=== PATIENT | female | born 1975 | race Two or more races ===

== ENCOUNTER → 2022-12-30 | Emergency (ER) | payer BC ==
[~2022-12-30] VITALS: Ht 175.3 cm; Wt 63.5 kg
[~2022-12-30] MED LIST: ALPRAZOLAM ODT0.5 MG PO; INDERAL XL80 MG PO; PEPCID40 MG PO; ZOFRAN8 MG PO
== END | disposition home or self-care (01) ==
LOC: ER 00:53
DX: R11.11 Vomiting without nausea (principal); I10 Essential (primary) hypertension